=== PATIENT | male | born 1940 ===

== ENCOUNTER → 2020-09-12 | Outpatient (CLI) | payer MEDICARE ==
[2020-08-15 22:30] VITALS: BP 122/70
[~2020-09-12] MED LIST: ALLOPURINOL300 M1 PO; ASPIRIN E.C. 8181 MG PO; ATORVASTATIN CA40 MG PO; DESYREL 100MG100 MG PO; FAMOTIDINE20 MG PO; FUROSEMIDE40 MG PO; GOOD NEIGHBOR500 M2 PO; INCRUSE EL62.5 MCG/A IH; ISOSORBIDE30 MG PO; LOPRESSOR 225 MG/TAB PO; MELATIN 3 MG-11 TAB PO; NEXIUM 40MG40 MG PO; POTASSIUM CHLO10 ME5 PO; PREDNISONE10 MG PO; PROAIR HFA0.09 MG/AC IH; RT ADVAIR HFA 1112 G IH
[2020-09-12 09:14] LABS: HEMATOCRIT 40.7 % (42.0-52.0); HEMOGLOBIN 12.1 g/dL (13.5-18.0); MEAN CELL VOLUME 84 fl (78-100); MEAN CORPUSCULAR HEMOGLOBIN 25 pg (27-31); MEAN CORPUSCULAR HGB CONC 30 g/dL (33-37); MEAN PLATELET VOLUME 9.5 fl (7.4-10.4); RED BLOOD COUNT 4.87 M/mm3 (4.20-5.60); RED CELL DISTRIBUTION WIDTH 22.9 % (11.5-14.5); WHITE BLOOD COUNT 11.4 K/mm3 (4.8-10.8)
[2020-09-12 09:20] LABS: ALBUMIN 3.4 g/dL (3.4-4.8); POTASSIUM 4.7 mmol/L (3.5-5.1)
[2020-09-12 09:21] LABS: CALCIUM 8.1 mg/dL (8.3-10.5)
[2020-09-12 09:22] LABS: TOTAL PROTEIN 5.8 g/dL (6.2-8.1)
[2020-09-12 09:24] LABS: TOTAL BILIRUBIN 0.6 mg/dL (0.2-1.2)
[2020-09-12 09:29] LABS: MAGNESIUM 1.82 mg/dL (1.60-2.60)
[2020-09-12 09:34] LABS: PLATELET COUNT 649 K/mm3 (130-400)
[2020-09-12 09:48] LABS: BAND 1 % (0-10); LYMPHOCYTE 7 % (20-51); MONOCYTE 4 % (3-10); NEUTROPHILS 88 % (42-75); NUCLEATED RED BLOOD CELL 1 (0-6)
== END ==
LOC: LAB 08:52
PROVIDERS: Internal Medicine
DX: I27.21 Secondary pulmonary arterial hypertension (principal)

== ENCOUNTER 2020-09-22 11:19 | Emergency (ER) | payer MEDICARE ==
[2020-09-22 12:13] LABS: EOS # 0.2 (0.04-0.40); EOS % 3.3 % (0.0-4.0); HEMATOCRIT 34.1 % (42.0-52.0); HEMOGLOBIN 9.7 g/dL (13.5-18.0); LYMPH# 1.1 (1.50-4.00); MEAN CELL VOLUME 83 fl (78-100); MEAN CORPUSCULAR HEMOGLOBIN 24 pg (27-31); MEAN CORPUSCULAR HGB CONC 28 g/dL (33-37); MEAN PLATELET VOLUME 10.3 fl (7.4-10.4); MONO # 0.3 (0.20-0.80); NEU # 4.2 (1.40-6.50); PLATELET COUNT 490 K/mm3 (130-400); RED BLOOD COUNT 4.11 M/mm3 (4.20-5.60); RED CELL DISTRIBUTION WIDTH 21.6 % (11.5-14.5); WHITE BLOOD COUNT 5.8 K/mm3 (4.8-10.8)
[2020-09-22 12:20] LABS: ALBUMIN 3.3 g/dL (3.4-4.8)
[2020-09-22 12:21] LABS: POTASSIUM 4.4 mmol/L (3.5-5.1)
[2020-09-22 12:23] LABS: TOTAL PROTEIN 5.7 g/dL (6.2-8.1)
[2020-09-22 12:25] LABS: TOTAL BILIRUBIN 0.2 mg/dL (0.2-1.2)
[2020-09-22 14:03] LABS: D-DIMER 5.26 mg/L FEU (0.15-0.50)
[2020-09-22 14:06] LABS: D-DIMER EXTENDED 5.22 mg/L FEU (0.15-0.50)
[2020-09-22 14:38] LABS: URINE APPEARANCE CLEAR; URINE BILIRUBIN NEGATIVE (NEGATIVE); URINE BLOOD NEGATIVE (NEGATIVE); URINE COLOR YELLOW; URINE GLUCOSE NEGATIVE (NEGATIVE); URINE KETONE NEGATIVE (NEGATIVE); URINE LEUKOCYTE ESTERASE NEGATIVE (NEGATIVE); URINE NITRATE NEGATIVE (NEGATIVE); URINE PROTEIN(semi-quant) TRACE mg/dL (NEGATIVE); URINE UROBILINOGEN NORMAL (NORMAL)
[2020-09-22 14:39] LABS: URINE MUCUS PRESENT (NOT PRESENT)
[2020-09-22 19:01] VITALS: BP 138/68
== END 2020-09-22 18:40 | disposition short-term general hospital (02) ==
LOC: ED 11:19
PROVIDERS: Physician Assistant
DX: N17.9 Acute kidney failure, unspecified (principal); I50.9 Heart failure, unspecified; I11.0 Hypertensive heart disease with heart failure; I25.2 Old myocardial infarction; E78.5 Hyperlipidemia, unspecified; J44.9 Chronic obstructive pulmonary disease, unspecified; M10.9 Gout, unspecified; Z87.891 Personal history of nicotine dependence; Z86.19 Personal history of other infectious and parasitic diseases; Z79.82 Long term (current) use of aspirin; Z79.51 Long term (current) use of inhaled steroids
CPT/HCPCS: J1940

== ENCOUNTER → 2020-10-10 | Outpatient (CLI) | payer MEDICARE ==
[2020-09-22 19:01] VITALS: BP 138/68
[2020-10-10 13:21] LABS: POTASSIUM 4.4 mmol/L (3.5-5.1)
[2020-10-10 13:23] LABS: CALCIUM 8.6 mg/dL (8.3-10.5)
== END ==
LOC: LAB 12:53
PROVIDERS: Internal Medicine
DX: N18.30 Chronic kidney disease, stage 3 unspecified (principal)

== ENCOUNTER → 2020-10-31 | Outpatient (CLI) | payer MEDICARE ==
[2020-10-31 12:04] LABS: ALBUMIN 4.1 g/dL (3.4-4.8); POTASSIUM 4.3 mmol/L (3.5-5.1)
[2020-10-31 12:06] LABS: CALCIUM 9.3 mg/dL (8.3-10.5)
[2020-10-31 12:07] LABS: TOTAL PROTEIN 6.7 g/dL (6.2-8.1)
[2020-10-31 12:08] LABS: TOTAL BILIRUBIN 0.4 mg/dL (0.2-1.2)
[2020-10-31 12:13] LABS: MAGNESIUM 1.68 mg/dL (1.60-2.60)
== END ==
LOC: LAB 11:18
PROVIDERS: Internal Medicine
DX: I27.21 Secondary pulmonary arterial hypertension (principal); R97.8 Other abnormal tumor markers; R97.20 Elevated prostate specific antigen [PSA]

== ENCOUNTER 2021-01-21 14:40 | Emergency (ER) | payer MEDICARE, MEDICAID | END 2021-01-21 18:57 | disposition E | LOC: ED 14:40 | DX: I46.9 Cardiac arrest, cause unspecified (principal); I25.2 Old myocardial infarction; I10 Essential (primary) hypertension; I25.10 Atherosclerotic heart disease of native coronary artery without angina pectoris; J44.9 Chronic obstructive pulmonary disease, unspecified; Z86.16 Personal history of COVID-19; Z87.891 Personal history of nicotine dependence; Z79.82 Long term (current) use of aspirin ==